=== PATIENT | male | born 1985 | race Two or more races ===

== ENCOUNTER 2016-12-25 10:08 | Emergency (ER) | payer OTHER ==
[~2016-12-25] VITALS: Ht 177.8 cm; Wt 83.0 kg
[2016-12-25 15:06] VITALS: BP 128/78
== END 2016-12-25 15:06 | disposition home or self-care (01) ==
LOC: ED 10:08
DX: M54.32 Sciatica, left side (principal)

== ENCOUNTER 2017-01-06 16:21 | Emergency (ER) | payer OTHER ==
[~2017-01-06] VITALS: Ht 177.8 cm; Wt 85.3 kg
[2017-01-06 21:55] VITALS: BP 131/81
== END 2017-01-06 21:55 | disposition home or self-care (01) ==
LOC: ED 16:21
DX: M54.5 Low back pain (principal)

== ENCOUNTER → 2017-01-21 | Outpatient (CLI) | payer OTHER | END | disposition home or self-care (01) | LOC: MI 13:40 | PROC: BR39ZZZ Magnetic Resonance Imaging (MRI) of Lumbar Spine (ICD-10-PCS; principal; 2017-01-21) | DX: M54.16 Radiculopathy, lumbar region (principal); M54.5 Low back pain ==

== ENCOUNTER 2017-06-30 14:47 | Emergency (ER) | payer OTHER ==
[~2017-06-30] VITALS: Ht 177.8 cm; Wt 87.3 kg
[2017-06-30 16:35] VITALS: BP 133/92
== END 2017-06-30 16:35 | disposition home or self-care (01) ==
LOC: ED 14:47
DX: S63.602A Unspecified sprain of left thumb, initial encounter (principal); X50.9XXA Other and unspecified overexertion or strenuous movements or postures, initial encounter; Y93.69 Activity, other involving other sports and athletics played as a team or group; Y99.8 Other external cause status; Y92.89 Other specified places as the place of occurrence of the external cause

== ENCOUNTER → 2017-10-03 | Outpatient (CLI) | payer OTHER | END | disposition home or self-care (01) | LOC: MI 08:44 | PROC: BR39ZZZ Magnetic Resonance Imaging (MRI) of Lumbar Spine (ICD-10-PCS; principal; 2017-10-03) | DX: M54.42 Lumbago with sciatica, left side (principal) ==